=== PATIENT | female | born 1995 | race Caucasian/White ===

== ENCOUNTER 2020-03-24 04:48 | Emergency (ER) | payer MEDICAID ==
[~2020-03-24] VITALS: Ht 172.7 cm; Wt 46.9 kg
[2020-03-24 04:53] VITALS: BP 125/77
--- NOTE | 2020-03-24 06:08 | NUR ---
{null, DR. RIVER AT BEDSIDE ASSESSING PATIENT }
== END 2020-03-24 06:19 | disposition home or self-care (01) ==
LOC: ER 04:49
DX: M25.512 Pain in left shoulder (principal); R11.2 Nausea with vomiting, unspecified; Z98.890 Other specified postprocedural states
CPT/HCPCS: 73030; 99283

== ENCOUNTER 2021-05-03 02:36 | Emergency (ER) | payer MEDICAID ==
[~2021-05-03] VITALS: Ht 170.2 cm; Wt 54.0 kg
[2021-05-03 02:38] VITALS: BP 118/71
[2021-05-03] MEDS ORDERED: ketorolac trometh inj. 60 MG/2 ML VIAL IM ONE (02:55)
[2021-05-03] MEDS ORDERED: cephalexin 250mg capsule PO ONE (02:55)
[2021-05-03] MEDS ORDERED: CEPH-585 PO (03:40)
[2021-05-03] MEDS ORDERED: IBUP-1984 PO (03:42)
== END 2021-05-03 03:53 | disposition home or self-care (01) ==
LOC: ER 02:37
DX: L03.116 Cellulitis of left lower limb (principal); R11.2 Nausea with vomiting, unspecified; R50.9 Fever, unspecified; M25.572 Pain in left ankle and joints of left foot; Z87.81 Personal history of (healed) traumatic fracture; Z90.89 Acquired absence of other organs
CPT/HCPCS: 73610; 73630; 96372; 99284; J1885

== ENCOUNTER 2021-05-20 08:07 | Emergency (ER) | payer MEDICAID ==
[~2021-05-20] VITALS: Ht 170.2 cm; Wt 57.0 kg
[~2021-05-20 08:07] MED LIST: CEPH-585 PO
[2021-05-20 08:11] VITALS: BP 114/59
[2021-05-20 08:39] LABS: BASOPHILS # (AUTO) 0.1 X10'3 (0-0.2); EOSINOPHILS # (AUTO) 0.1 X10'3 (0-0.9); HEMOGLOBIN 11.7 g/dl (12.0-16.0); LYMPHOCYTES # (AUTO) 0.6 X10'3 (1.1-4.8); MONOCYTES # (AUTO) 0.4 X10'3 (0-0.9); NEUTROPHILS # (AUTO) 4.8 X10'3 (1.8-7.7); RED CELL DISTRIBUTION WIDTH 13.8 % (11.5-14.5)
[2021-05-20 08:41] LABS: BASOPHILS % (AUTO) 1.3 % (0-1); EOSINOPHILS % (AUTO) 1.8 % (0-6); LYMPHOCYTES % (AUTO) 10.3 % (21-51); MEAN CORPUSCULAR HEMOGLOBIN 31.1 PG (27.0-31.0); MEAN CORPUSCULAR HGB CONC 33.3 g/dL (33.0-36.5); MEAN CORPUSCULAR VOLUME 93.4 FL (78-98); MEAN PLATELET VOLUME 6.7 FL (7.4-10.4); MONOCYTES % (AUTO) 7.1 % (2-12); NEUTROPHILS % (AUTO) 79.5 % (42-75); PLATELET COUNT 706 X10'3 (140-440); RED BLOOD COUNT 3.75 X10'6 (4.20-5.60)
[2021-05-20 09:07] LABS: ALANINE AMINOTRANSFERASE 18 U/L (12-78); ALBUMIN 3.5 G/DL (3.4-5.0); ALBUMIN/GLOBULIN RATIO 0.7 (1.1-1.5); ALKALINE PHOSPHATASE 80 IU/L (46-116); ANION GAP 11 (8-16); ASPARTATE AMINO TRANSFERASE 19 U/L (10-37); BILIRUBIN,TOTAL 1.4 MG/DL (0.1-1.0); BLOOD UREA NITROGEN 18 MG/DL (7-18); BUN/CREATININE RATIO 23.1 (6.6-38.0); CALCIUM 9.4 MG/DL (8.5-10.1); CHLORIDE 103 MMOL/L (99-107); CREATININE 0.78 MG/DL (0.40-0.90); GLUCOSE 98 MG/DL (70-104); POTASSIUM 3.4 MMOL/L (3.5-5.1); SODIUM 141 MMOL/L (135-145); TOTAL CARBON DIOXIDE 26.6 MMOL/L (24-32); TOTAL PROTEIN 8.7 G/DL (6.4-8.2); eGFR 89 ML/MIN
[2021-05-20] MEDS ORDERED: quetiapine 100mg tablet PO SCH (09:57)
[2021-05-20] MEDS ORDERED: vancomycin/NS 1 GM ADD-VANTAGE 250 ML IV ONE (10:00)
[2021-05-20] MEDS ORDERED: piperacillin/tazo 3.375gm/50ml 50 ML IV ONE (10:00)
--- NOTE | 2021-05-20 10:15 | NUR ---
THIS RN ATTEMPTING TO IV IN PATIENT UNSUCCESSFULLY. PT VERY ANXIOUS AND TEARFUL WANTING TO LEAVE. EXPLAINED TO PATIENT IF SHE LEAVES SHE WILL LIKELY LOSE HER FOOT AND POSSIBLY HER LIFE. UNABLE TO CALM PATIENT. PATIENT LEAVING OUT FRONT DOOR. DR [email or web address]
[2021-05-21] MEDS ORDERED: quetiapine 100mg tablet PO ONE (09:57)
[2021-05-22] MEDS ORDERED: NO HOME MEDS (03:24)
[2021-05-24] MEDS ORDERED: DOXY100C2 PO (12:41)
== END 2021-05-20 10:40 | disposition left against medical advice (07) ==
LOC: ER 08:08
DX: L03.116 Cellulitis of left lower limb (principal); Z98.890 Other specified postprocedural states; Z79.2 Long term (current) use of antibiotics
CPT/HCPCS: 36415; 80053; 83605; 84145; 85025; 85651; 86140; 87040; 99283